=== PATIENT | female | born 1970 | race Caucasian/White ===

== ENCOUNTER 2016-11-12 09:25 | Observation (INO) | payer BC, OTHER ==
[~2016-11-12] VITALS: Ht 165.1 cm; Wt 66.2 kg
[2016-11-12] MEDS ORDERED: ASPIRIN 81 MG CHEW PO STA (09:36)
[2016-11-12] MEDS ORDERED: SODIUM CHLORIDE 0.9% 500ML 500 ML IV STA (09:36)
--- NOTE | 2016-11-12 09:42 | EMERGENCY ROOM VISIT NOTE ---
History Report prepared by Tabatha: Mey Ken Under the Supervision of: Dr. Francesco Chen D.O. First contact with patient: 09:27 Chief Complaint: CHEST PAIN Stated Complaint: CHEST PAIN History of Present Illness The patient is a 45 year old female who presents to the Emergency Room with complaints of waxing and waning left sided chest pain beginning 2 days ago. The patient states that 2 days ago she lifted her arms up and stretched and had some chest pain that she thought was related to stretching. She reports that the chest pain continued the following day while she was at work but she was able to sleep at night. She notes that when she woke up this morning she had a lot of discomfort and was concerned as her father at 54 with coronary artery disease. The patient states that she took 6 Advil over the span of a few hours without relief of her symptoms. She complains of left arm numbness and diaphoresis. She denies any shortness of breath, pain in the legs, swelling in the legs, vomiting, recent travel, and pain with breathing. The patient states that she has never had a stress test or heart catheterization and notes a history of high cholesterol. She notes that she does not get her menstrual period anymore. Source of History: patient Onset: 2 days ago Position: chest Quality: other (discomfort) Timing: waxes/wanes Modifying Factors (Relieving): other (none) Associated Symptoms: + diaphoresis, No SOB, No vomiting Note: Pt complains of left arm numbness. She denies any pain in the legs, swelling in the legs, recent travel, and pain with breathing. Review of Systems See HPI for pertinent positives & negatives. A total of 10 systems reviewed and were otherwise negative. Past Medical & Surgical Surgical Problems: (1) S/P section Family History FH: cancer FH: heart disease Hypertension Social History Smoking Status: Current Every Day Smoker Alcohol Use: occasionally Marital Status: Housing Status: lives with family Occupation Status: unemployed Current/Historical Medications No Active Prescriptions or Reported Meds Allergies Coded Allergies: Codeine (Verified Adverse Reaction, Mild, TYLENOL W/CODEINE-UPSET STOMACH , 11/12/16) "UPSET STOMACH" Azithromycin (Verified Adverse Reaction, Unknown, GI SYMPTOMS, 11/12/16) Physical Exam Vital Signs Date Time Temp Pulse Resp B/P (MAP) Pulse Ox O2 Delivery O2 Flow Rate FiO2 11/12/16 10:57 87 18 120/86 99 Room Air 11/12/16 10:16 92 20 131/91 97 Room Air 11/12/16 10:06 93 20 139/97 95 Room Air 11/12/16 09:37 123 11/12/16 09:31 100 Room Air 11/12/16 09:30 100 Room Air 11/12/16 09:30 36.5 121 20 164/95 100 Room Air Physical Exam GENERAL: Patient is awake, alert, and in no acute distress. Patient is resting comfortably and showing no signs of anxiety EYES: The conjunctivae are clear. The pupils are round and reactive. EARS, NOSE, MOUTH AND THROAT: The nose is without any evidence of any deformity. Mucous membranes are moist tongue is midline NECK: The neck is nontender and supple. RESPIRATORY: Normal respiratory effort is noted there is no evidence of wheezing rhonchi or rales CARDIOVASCULAR: Tachycardic rate and regular rhythm noted there no murmurs rubs or gallops normal S1 normal S2 GASTROINTESTINAL: The abdomen is soft. Bowel sounds are present in all quadrants. Abdomen is nontender MUSCULOSKELETAL/EXTREMITIES: There is no evidence of gross deformity full range of motion is noted in the hips and shoulders SKIN: There is no obvious evidence of any rash. There are no petechiae, pallor or cyanosis noted. NEUROLOGIC: Patient is awake alert and oriented x3 Medical Decision & Procedures ER Provider Diagnostic Interpretation: X-ray results as stated below per interpretation by me and the radiologist. CHEST ONE VIEW PORTABLE FINDINGS: The cardiac and mediastinal contours are normal. There is no evidence of focal pulmonary consolidation. There is no evidence of failure. No pleural effusions are visualized. IMPRESSION: No active disease in the chest. Electronically signed by: Kelvin Richardson M.D. 11/12/2016 10:00 AM Dictated Date/Time: 11/12/2016 10:00 AM Laboratory Results 11/12/16 09:40 Red Blood Count 4.62, Mean Corpuscular Volume 94.6, Mean Corpuscular Hemoglobin 32.9, Mean Corpuscular Hemoglobin Concent 34.8, Mean Platelet Volume 9.9, Neutrophils (%) (Auto) 66.7, Lymphocytes (%) (Auto) 20.9, Monocytes (%) (Auto) 8.4, Eosinophils (%) (Auto) 3.3, Basophils (%) (Auto) 0.7, Neutrophils # (Auto) 3.90, Lymphocytes # (Auto) 1.22, Monocytes # (Auto) 0.49, Eosinophils # (Auto) 0.19, Basophils # (Auto) 0.04 11/12/16 09:40 Test 11/12/16 09:40 11/12/16 09:46 White Blood Count 5.84 K/uL (4.8-10.8) Red Blood Count 4.62 M/uL (4.2-5.4) Hemoglobin 15.2 g/dL (12.0-16.0) Hematocrit 43.7 % (37-47) Mean Corpuscular Volume 94.6 fL (80-100) Mean Corpuscular Hemoglobin 32.9 pg (25-34) Mean Corpuscular Hemoglobin Concent 34.8 g/dl (32-36) Platelet Count 189 K/uL (130-400) Mean Platelet Volume 9.9 fL (7.4-10.4) Neutrophils (%) (Auto) 66.7 % Lymphocytes (%) (Auto) 20.9 % Monocytes (%) (Auto) 8.4 % Eosinophils (%) (Auto) 3.3 % Basophils (%) (Auto) 0.7 % Neutrophils # (Auto) 3.90 K/uL (1.4-6.5) Lymphocytes # (Auto) 1.22 K/uL (1.2-3.4) Monocytes # (Auto) 0.49 K/uL (0.11-0.59) Eosinophils # (Auto) 0.19 K/uL (0-0.5) Basophils # (Auto) 0.04 K/uL (0-0.2) RDW Standard Deviation 43.7 fL (36.4-46.3) RDW Coefficient of Variation 12.6 % (11.5-14.5) Immature Granulocyte % (Auto) 0.0 % Immature Granulocyte # (Auto) 0.00 K/uL (0.00-0.02) Prothrombin Time 10.8 SECONDS (9.0-12.0) Prothromb Time International Ratio 1.0 (0.9-1.1) Activated Partial Thromboplast Time 25.4 SECONDS (21.0-31.0) Partial Thromboplastin Ratio 1.0 Anion Gap 9.0 mmol/L (3-11) Est Creatinine Clear Calc Drug Dose 63.9 ml/min Estimated GFR () 78.8 Estimated GFR (Non- 68.0 BUN/Creatinine Ratio 12.5 (10-20) Calcium Level 9.5 mg/dl (8.5-10.1) Total Bilirubin 0.6 mg/dl (0.2-1) Direct Bilirubin 0.1 mg/dl (0-0.2) Aspartate Amino Transf (AST/SGOT) 15 U/L (15-37) Alanine Aminotransferase (ALT/SGPT) 20 U/L (12-78) Alkaline Phosphatase 48 U/L (45-117) Troponin I < 0.015 ng/ml (0-0.045) Total Protein 7.8 gm/dl (6.4-8.2) Albumin 4.3 gm/dl (3.4-5.0) Lipase 162 U/L (73-393) Human Chorionic Gonadotropin, Qual NEG (NEG) Bedside D-Dimer 179 ng/mlFEU (0-450) Laboratory results per my review. Medications Administered Medications (Trade) Dose Ordered Sig/Damien Route Start Time Stop Time Status Last Admin Dose Admin Sodium Chloride 500 ml @ 999 mls/hr Q31M STAT IV 11/12/16 09:36 11/12/16 10:06 DC 11/12/16 09:58 999 MLS/HR Aspirin (Aspirin Chew) 324 mg NOW STAT PO 11/12/16 09:36 11/12/16 09:37 DC 11/12/16 09:56 324 MG Nitroglycerin (Nitrostat Tab) 0.4 mg Q5M PRN SL 11/12/16 09:45 12/12/16 09:44 11/12/16 10:10 0.4 MG ECG Indication: chest pain Rate (beats per minute): 114 Rhythm: sinus tachycardia Findings: ST depression (diffuse), no ectopy Comparison ECG Date: no prior available ED Course 0927: The patient was evaluated in room A4B. A complete history and physical examination were performed. 0936: Aspirin Chew 324mg PO, NSS 500 ml @ 999 mls/hr IV. 0945: Nitroglycerin 0.4mg PRN SL pain. 1046: I reevaluated and updated the patient. 1118: I discussed the patient's case with Dr. Díaz of [facility] [place]. The patient will be evaluated for further management. 1123: Upon reevaluation, the patient is doing well. I discussed results and treatment plan with the patient. She verbalizes agreement and understanding. I spoke with Dr. Díaz of the [facility]. The patient will be evaluated for further management and care. Medical Decision Differential diagnosis: Etiologies such as cardiac ischemia, aortic dissection, pulmonary embolism, pneumonia, pneumothorax, musculoskeletal, infections, pericarditis, myocarditis , esophageal rupture, gastrointestinal, as well as others were entertained. Medication Reconciliation: I attest that I have personally reviewed the patient' s current medications list. Patient was found to have a slightly elevated blood pressure due to circumstances. I do not believe that the patient requires hypertension monitoring. The patient is a 45-year-old female who presented to the emergency department for an evaluation of chest pain. The patient describes left-sided chest pain which has been ongoing for the last day. She states she had similar episodes in the past. The pain is not specifically exertional. The patient was very concerned because she does have risk factors for coronary artery disease including a strong family history tobacco use and high cholesterol so she presented to the emergency department today. I discussed the patient's laboratory and radiographic studies with her. I discussed the limitations of the emergency department workup for chest pain with her. Given the patient's EKG findings I discussed her case with the on-call [facility] hospitalist. They've agreed to evaluate the patient in the emergency department for further management and disposition. I discussed this plan with the patient and she was agreeable. Consults Time Called: 1103 Consulting Physician: Dr. Díaz Returned Call: [phone] I discussed the patient's case with Dr. Díaz of [facility] [place]. The patient will be evaluated for further management. Impression Primary Impression: Left sided chest pain Additional Impression: Abnormal EKG Scribe Attestation The scribe's documentation has been prepared under my direction and personally reviewed by me in its entirety. I confirm that the note above accurately reflects all work, treatment, procedures, and medical decision making performed by me. Departure Information Dispostion Being Evaluated By Hospitalist Prescriptions No Active Prescriptions or Reported Meds Referrals No Doctor, Assigned (PCP) Patient Instructions My [facility] Problem Qualifiers
[2016-11-12] MEDS: NITROGLYCERIN 0.4 MG SL PER TAB CHARGE SL PRN ×3 (09:57→10:19)
--- NOTE | 2016-11-12 10:02 | DIAGNOSTIC IMAGING REPORT ---
CHEST ONE VIEW PORTABLE CLINICAL HISTORY: Atypical chest pain COMPARISON STUDY: 07/06/2013 FINDINGS: The cardiac and mediastinal contours are normal. There is no evidence of focal pulmonary consolidation. There is no evidence of failure. No pleural effusions are visualized.[ IMPRESSION: No active disease in the chest. Electronically signed by: Kelvin Richardson M.D. 11/12/2016 10:00 AM Dictated Date/Time: 11/12/2016 10:00 AM
[2016-11-12 10:06] LABS: BASO % 0.7 %; BASO ABS # 0.04 K/uL (0-0.2); COMPLETE YES; EOS % 3.3 %; HEMATOCRIT 43.7 % (37-47); LYMPH % 20.9 %; LYMPH ABS # 1.22 K/uL (1.2-3.4); MEAN CELL VOLUME 94.6 fL (80-100); MEAN CORPUSCULAR HEMOGLOBIN 32.9 pg (25-34); MEAN CORPUSCULAR HGB CONC 34.8 g/dl (32-36); MEAN PLATELET VOLUME 9.9 fL (7.4-10.4); MONO % 8.4 %; NEUT % 66.7 %; PLATELET COUNT 189 K/uL (130-400); RED BLOOD COUNT 4.62 M/uL (4.2-5.4); WHITE BLOOD COUNT 5.84 K/uL (4.8-10.8)
[2016-11-12 10:15] LABS: ALT/SGPT 20 U/L (12-78); BLOOD UREA NITROGEN 13 mg/dl (7-18); BUN/CREATININE RATIO 12.5 (10-20); CALCIUM 9.5 mg/dl (8.5-10.1); CARBON DIOXIDE 25 mmol/L (21-32); CHLORIDE 104 mmol/L (98-107); GLUCOSE 109 mg/dl (70-99); POTASSIUM 3.6 mmol/L (3.5-5.1); SODIUM 138 mmol/L (136-145)
[2016-11-12 10:20] LABS: ALKALINE PHOSPHATASE 48 U/L (45-117); AST/SGOT 15 U/L (15-37); PREG INTERNAL NEGATIVE QC NEG CLEAR BACKGROUND; PREG INTERNAL POSITIVE QC POS CONTROL LINE
[2016-11-12 10:21] LABS: PROTHROMBIN TIME (PATIENT) 10.8 SECONDS (9.0-12.0)
[2016-11-12 11:30] VITALS: O2SAT 99; Ht 165.1 cm; Wt 66.2 kg
[2016-11-12] MEDS ORDERED: ONDANSETRON INJ 2 MG/ML 2 ML VIAL IV PRN (11:30)
[2016-11-12] MEDS ORDERED: OPTIRAY 320 IV PRN (12:00)
[2016-11-12] MEDS ORDERED: IV FLUIDS COMPLETED PRN (12:15)
--- NOTE | 2016-11-12 12:24 | DIAGNOSTIC IMAGING REPORT ---
CT ANGIOGRAM OF THE CHEST CLINICAL HISTORY: Atypical chest and left arm pain. COMPARISON STUDY: No previous studies for comparison. TECHNIQUE: Following the IV administration of 78 mL of Optiray-320, CT angiogram of the thorax was performed from the thoracic inlet to the lung bases utilizing the pulmonary embolus protocol. Images are reviewed in the axial, sagittal, and coronal planes. IV contrast was administered without complication. MIP imaging was performed. CT DOSE: 793.30 mGy.cm FINDINGS: No pathologically enlarged axillary mediastinal or hilar lymph nodes were visualized. There was no evidence of thoracic aortic dilatation. There were no pulmonary artery filling defects to indicate acute pulmonary embolism. No pleural effusions are visualized. There are dependent atelectatic changes. There is a 5 mm solid right middle lobe pulmonary nodule as visualized in image #[id number]. There is a 4 mm solid perifissural right middle lobe nodule as visualized in image #138/[id number]. There is a 6 mm solid subpleural right apical pulmonary nodule as visualized in image #[id number]. There is a 7 mm mixed groundglass and solid pulmonary nodule within the superior segment left lower lobe as visualized in image #[id number]. IMPRESSION: 1. No CT evidence of acute pulmonary embolism 2. No evidence of focal pulmonary consolidation 3. Low suspicion subcentimeter pulmonary nodules. A 6 month follow-up study is recommended. Please refer to below summary of Fleischner criteria recommendations for follow-up of incidental CT nodules (Shruthi Aviles, Guidelines for management of small pulmonary nodules detected on CT scans: A statement from the Fleischner Society, Radiology 237: [phone].) SOLID NODULES Solitary nodule size: <6 mm * low risk patients: no follow-up needed * high risk patients: optional CT at 12 months Solitary nodule size: 6-8 mm * low risk patients: follow-up at 6-12 months, then consider further follow-up at 18-24 months * high risk patients: initial follow-up CT at 6-12 months and then at 18-24 months if no change Solitary nodule size: >8 mm * either low or high risk patients - consider follow-up CT at 3 months, and/or CT-PET, and/or biopsy Multiple nodules size: <6 mm * low risk patients: no routine follow-up * high risk patients: optional CT at 12 months Multiple nodules size: 6-8 mm * low risk patients: follow-up at 3-6 months, then consider further follow-up at 18-24 months * high risk patients: follow-up at 3-6 months, then at 18-24 months if no change Multiple nodules size: >8 mm * low risk patients: follow-up at 3-6 months, then consider further follow-up at 18-24 months * high risk patients: follow-up at 3-6 months, then at 18-24 months if no change Note: newly detected indeterminate nodule in persons 35 years of age or older. * low risk patients: minimal or absent history of smoking and/or other known risk factors * high risk patients: history of smoking or of other known risk factors (e.g. first degree relative with lung cancer, or exposure to asbestos, radon, uranium) * if a nodule up to 8 mm is partly solid or is ground glass further follow-up is required after 24 months to exclude possible slow growing adenocarcinoma (JENNIFER) SUBSOLID NODULES Solitary pure ground-glass nodule * nodule size <6 mm - no CT follow-up required * nodule size >=6 mm - follow-up CT at 6-12 months, then every 2 years until 5 years Solitary part-solid nodule * nodule size <6 mm - no CT follow-up required * nodule size >=6 mm - follow-up CT at 3-6 months. If unchanged, and solid component remains <6 mm, then annual follow-up for 5 years Multiple subsolid nodules * nodule size <6 mm - follow-up CT at 3-6 months, consider further follow-up at 2 and 4 years if stable * nodule size >=6 mm - follow-up CT at 3-6 months, subsequent management based on the most suspicious nodule(s) Electronically signed by: Kelvin Richardson M.D. 11/12/2016 12:23 PM Dictated Date/Time: 11/12/2016 12:14 PM
--- NOTE | 2016-11-12 12:28 | Medical Student: [facility] ---
Med Student History & Physical Date & Time of Service: Nov 12, 2016 at 12:19 Chief Complaint: Chest Pain Primary Care Physician: No Doctor, Assigned History of Present Illness Source: patient Mrs. Kaba is a 45 year old female with a PMH significant for hypercholesterolemia who presents today with left sided chest pain of 3 days duration. Her pain started morning after stretching and she attributed the pain to that. She describes the pain as constant and dull and achy. It intermittently radiates to her back. At its worst, the pain is a 5/10. She has no associated MARTINEZ, SOB, calf pain, or abdominal pain. She did experience dizziness, nausea and diaphoresis this morning however. The pain is worse with movement of her neck and stretching of her arms above her head. Additionally, she started having numbness/tingling of her left arm, hand and fingers this morning. She doesn't have decreased sensation however. She has never experienced this left arm numbness or left sided chest pain before. She does have a history of right trapezius muscle spasm for which she was seeing a chiropractor. The spasm has since resolved before onset of this chest pain. On arrival to the ED, the patient was afebrile, tachycardic at 121, and hypertensive at 164/95, and sating well at 100% RA. She was given 500 cc NS, 324 mg ASA, and 0.4 mg Nitrostat. Past Medical/Surgical History 1) Hypercholesterolemia Family History Father: at 54 of [place] Social History Smoking Status: Current Every Day Smoker (1/2 ppd ) Marital Status: Occupational Status: employed (employee at [employer] ) Allergies Coded Allergies: Codeine (Verified Adverse Reaction, Mild, TYLENOL W/CODEINE-UPSET STOMACH , 11/12/16) "UPSET STOMACH" Azithromycin (Verified Adverse Reaction, Unknown, GI SYMPTOMS, 11/12/16) Medications No Active Prescriptions or Reported Meds Review of Systems Constitutional: No fever, No chills, No sweats Eyes: No worsening of vision ENT: No hearing loss Respiratory: + dyspnea at rest, No cough, No sputum, No wheezing, No shortness of breath Cardiovascular: + chest pain (left sided 3/10 ), No edema, No palpitations Abdomen: No pain, No nausea, No vomiting, No diarrhea, No constipation Musculoskeletal: No joint pain, No muscle pain Genitourinary - Female: No dysuria, No urinary frequency, No urinary urgency Neurologic: + numbness/tingling (left arm/hand/fingers ), No paralysis, No weakness Endocrine: No fatigue Integumentary: No rash, No itch Physical Exam Vital Signs (24 Hours) Date Time Temp Pulse Resp B/P (MAP) Pulse Ox O2 Delivery O2 Flow Rate FiO2 11/12/16 12:14 80 15 135/93 99 Room Air 11/12/16 11:30 99 Room Air 11/12/16 10:57 87 18 120/86 99 Room Air 11/12/16 10:16 92 20 131/91 97 Room Air 11/12/16 10:06 93 20 139/97 95 Room Air 11/12/16 09:37 123 11/12/16 09:31 100 Room Air 11/12/16 09:30 100 Room Air 11/12/16 09:30 36.5 121 20 164/95 100 Room Air General Appearance: WD/WN, no apparent distress Head: normocephalic, atraumatic Eyes: normal inspection ENT: normal ENT inspection, hearing grossly normal Neck: supple, no adenopathy, thyroid normal, no JVD Respiratory/Chest: chest non-tender, lungs clear, normal breath sounds, no respiratory distress, no accessory muscle use Cardiovascular: regular rate, rhythm, no edema, no gallop, no murmur, normal peripheral pulses Abdomen/GI: normal bowel sounds, non tender, soft, no organomegaly Back: normal inspection Extremities/Musculoskelatal: normal inspection, no calf tenderness, normal capillary refill, no pedal edema 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, no motor/sensory deficits Skin: normal color, warm/dry Diagnostics Laboratory Results Results Past 24 Hours Test 11/12/16 09:40 11/12/16 09:46 11/12/16 11:27 Range/Units White Blood Count 5.84 4.8-10.8 K/uL Red Blood Count 4.62 4.2-5.4 M/uL Hemoglobin 15.2 12.0-16.0 g/dL Hematocrit 43.7 37-47 % Mean Corpuscular Volume 94.6 80-100 fL Mean Corpuscular Hemoglobin 32.9 25-34 pg Mean Corpuscular Hemoglobin Concent 34.8 32-36 g/dl Platelet Count 189 130-400 K/uL Mean Platelet Volume 9.9 7.4-10.4 fL Neutrophils (%) (Auto) 66.7 % Lymphocytes (%) (Auto) 20.9 % Monocytes (%) (Auto) 8.4 % Eosinophils (%) (Auto) 3.3 % Basophils (%) (Auto) 0.7 % Neutrophils # (Auto) 3.90 1.4-6.5 K/uL Lymphocytes # (Auto) 1.22 1.2-3.4 K/uL Monocytes # (Auto) 0.49 0.11-0.59 K/uL Eosinophils # (Auto) 0.19 0-0.5 K/uL Basophils # (Auto) 0.04 0-0.2 K/uL RDW Standard Deviation 43.7 36.4-46.3 fL RDW Coefficient of Variation 12.6 11.5-14.5 % Immature Granulocyte % (Auto) 0.0 % Immature Granulocyte # (Auto) 0.00 0.00-0.02 K/uL Prothrombin Time 10.8 9.0-12.0 SECONDS Prothromb Time International Ratio 1.0 0.9-1.1 Activated Partial Thromboplast Time 25.4 21.0-31.0 SECONDS Partial Thromboplastin Ratio 1.0 Sodium Level 138 136-145 mmol/L Potassium Level 3.6 3.5-5.1 mmol/L Chloride Level 104 98-107 mmol/L Carbon Dioxide Level 25 21-32 mmol/L Anion Gap 9.0 3-11 mmol/L Blood Urea Nitrogen 13 7-18 mg/dl Creatinine 1.00 0.60-1.20 mg/dl Est Creatinine Clear Calc Drug Dose 63.9 ml/min Estimated GFR () 78.8 Estimated GFR (Non- 68.0 BUN/Creatinine Ratio 12.5 10-20 Random Glucose 109 70-99 mg/dl Calcium Level 9.5 8.5-10.1 mg/dl Total Bilirubin 0.6 0.2-1 mg/dl Direct Bilirubin 0.1 0-0.2 mg/dl Aspartate Amino Transf (AST/SGOT) 15 15-37 U/L Alanine Aminotransferase (ALT/SGPT) 20 12-78 U/L Alkaline Phosphatase 48 45-117 U/L Troponin I < 0.015 0-0.045 ng/ml Total Protein 7.8 6.4-8.2 gm/dl Albumin 4.3 3.4-5.0 gm/dl Lipase 162 73-393 U/L Human Chorionic Gonadotropin, Qual NEG NEG Bedside D-Dimer 179 0-450 ng/mlFEU Creatine Kinase MB Ratio 0-3.[address] 11/12/2016 CT ANGIOGRAM OF THE CHEST CLINICAL HISTORY: Atypical chest and left arm pain. COMPARISON STUDY: No previous studies for comparison. TECHNIQUE: Following the IV administration of 78 mL of Optiray-320, CT angiogram of the thorax was performed from the thoracic inlet to the lung bases utilizing the pulmonary embolus protocol. Images are reviewed in the axial, sagittal, and coronal planes. IV contrast was administered without complication. MIP imaging was performed. CT DOSE: 793.30 mGy.cm FINDINGS: No pathologically enlarged axillary mediastinal or hilar lymph nodes were visualized. There was no evidence of thoracic aortic dilatation. There were no pulmonary artery filling defects to indicate acute pulmonary embolism. No pleural effusions are visualized. There are dependent atelectatic changes. There is a 5 mm solid right middle lobe pulmonary nodule as visualized in image #[id number]. There is a 4 mm solid perifissural right middle lobe nodule as visualized in image #138/[id number]. There is a 6 mm solid subpleural right apical pulmonary nodule as visualized in image #236/266. There is a 7 mm mixed groundglass and solid pulmonary nodule within the superior segment left lower lobe as visualized in image #[id number]. IMPRESSION: 1. No CT evidence of acute pulmonary embolism 2. No evidence of focal pulmonary consolidation 3. Low suspicion subcentimeter pulmonary nodules. A 6 month follow-up study is recommended. CXR 11/12/2016 CHEST ONE VIEW PORTABLE CLINICAL HISTORY: Atypical chest pain COMPARISON STUDY: 07/06/2013 FINDINGS: The cardiac and mediastinal contours are normal. There is no evidence of focal pulmonary consolidation. There is no evidence of failure. No pleural effusions are visualized.[ IMPRESSION: No active disease in the chest Cervical CT 11/12/2016 CT OF THE CERVICAL SPINE CLINICAL HISTORY: Neck pain and left arm radiculopathy COMPARISON STUDY: No previous studies for comparison. CT DOSE: TECHNIQUE: CT scan of the cervical spine was performed from the skull base to the thoracic inlet. Images are reviewed in the axial, sagittal, and coronal planes. IV contrast was not administered for this examination. FINDINGS: There is no pneumothorax. There is a 6 mm subpleural right apical pulmonary nodule. The prevertebral soft tissues are normal. No acute fractures are visualized. Minimal anterior subluxation of C3 on C4 is felt to be degenerative. There is a slight reversal the normal cervical lordosis. There is moderately advanced facet joint arthropathy at the C3-4 level on the right. IMPRESSION: 1. Slight reversal the normal cervical lordosis 2. No acute fractures or traumatic subluxations 3. Moderately advanced facet joint arthropathy at C3-4 level of the right 4. 6 mm subpleural right apical pulmonary nodule EKG RBBB Possible diffuse ST segment depressions Impression Assessment and Plan Assessment: Mrs. Kaba is a 45 year old female with a PMH significant for hypercholesterolemia who presents today with left sided chest pain of 3 days duration and left arm numbness/tingling of one day duration. Differential for the patient's chest pain includes PE, ACS, NSTEMI, costochondritis, and GERD. Differential for patient's left arm numbness/tingling includes ACS, NSTEMI, or cervical radiculopathy. The patient does have various risk factors for CAD. She is a smoker and smokes 1/2 ppd. She has a family history of CAD. Her father at 54 of an [place]. Additionally, she has hypercholesterolemia. CXR was negative for consolidation, pneumothorax or effusion. ECG showed RBBB and possible diffuse ST segment depressions. Troponin-I was negative and d-dimer was negative. Plan: Chest pain - Etiology is still unclear. PE must be considered even though d- dimer was negative. ACS and NSTEMI must be considered as well. -repeat EKG -serial troponins & CK-MB -chest CT to r/o PE -nitroglycerin 0.4 mg q5hr -continue telemetry -echo Left arm/hand/fingers numbness & tingling - etiology likely cardiac (ACS or NSTEMI) or cervical radiculopathy -cervical X-ray to r/o cervical radiculopathy -investigate cardiac pathology as indicated above Nausea -Zofran 4 mg q6hr Level of Care Telemetry Advanced Directives Existing Living Will: No Existing Power of Unemployment Claims Adjudicator: No
--- NOTE | 2016-11-12 12:31 | DIAGNOSTIC IMAGING REPORT ---
CT OF THE CERVICAL SPINE CLINICAL HISTORY: Neck pain and left arm radiculopathy COMPARISON STUDY: No previous studies for comparison. CT DOSE: TECHNIQUE: CT scan of the cervical spine was performed from the skull base to the thoracic inlet. Images are reviewed in the axial, sagittal, and coronal planes. IV contrast was not administered for this examination. FINDINGS: There is no pneumothorax. There is a 6 mm subpleural right apical pulmonary nodule. The prevertebral soft tissues are normal. No acute fractures are visualized. Minimal anterior subluxation of C3 on C4 is felt to be degenerative. There is a slight reversal the normal cervical lordosis. There is moderately advanced facet joint arthropathy at the C3-4 level on the right. IMPRESSION: 1. Slight reversal the normal cervical lordosis 2. No acute fractures or traumatic subluxations 3. Moderately advanced facet joint arthropathy at C3-4 level of the right 4. 6 mm subpleural right apical pulmonary nodule Electronically signed by: Kelvin Richardson M.D. 11/12/2016 12:30 PM Dictated Date/Time: 11/12/2016 12:27 PM
[2016-11-12 12:47] VITALS: O2SAT 98
--- NOTE | 2016-11-12 13:11 | History and Physical ---
History & Physical Date & Time of Service: Nov 12, 2016 at 13:00 Chief Complaint: Chest Pain Primary Care Physician: No Doctor, Assigned History of Present Illness Source: patient, family The patient is a 45-year-old female who presents to the emergency department with complaints of left-sided chest pain that began about 2 days ago, and the development of left arm numbness this a.m. She took 6 Advil today without significant improvement, and with concerns of her father who at age 54 of an DC and with a history of previous silent heart attacks at autopsy, she presents for assessment. She has not had any signs of illness such as cough or wheezing or other extraneous lung sounds. She's had no recent travels or sick exposures. She has no leg pains or cramping, and the chest discomfort and left arm pain did not change with deep breath. She has not experienced this type of symptoms in the past. She has never had a stress test. Past Medical/Surgical History Surgical Problems: (1) S/P section Status: Resolved Family History FH: cancer FH: heart disease Hypertension Social History Smoking Status: Current Every Day Smoker Smokeless Tobacco Use: No Alcohol Use: none Drug Use: none Marital Status: Housing status: lives with family Occupational Status: employed Immunizations History of Influenza Vaccine: Unknown History of Tetanus Vaccine?: Unknown History of Pneumococcal: No History of Hepatitis B Vaccine: Unknown Multi-Drug Resistant Organisms History of MDRO: No Allergies Coded Allergies: Codeine (Verified Adverse Reaction, Mild, TYLENOL W/CODEINE-UPSET STOMACH , 11/12/16) "UPSET STOMACH" Azithromycin (Verified Adverse Reaction, Unknown, GI SYMPTOMS, 11/12/16) Home Medications No Active Prescriptions or Reported Meds Review of Systems The patient denies palpitations, cough, lower extremity swelling, vision change , hearing change, sore throat, fevers, chills, sweats, weight change, fatigue, nausea, vomiting, abdominal pain, pelvic pain, blood in urine or stool, dysuria , urinary frequency or urgency, lightheadedness, dizziness, headache, memory loss, rash, abnormal bruising or bleeding, imbalance, focal or generalized weakness, numbness or tingling in legs, generalized arthralgias or myalgias, back or neck pain, night sweats. The review of systems is otherwise negative other than for that already noted above, and at least 10 systems have been reviewed. Physical Exam Vital Signs Date Time Temp Pulse Resp B/P (MAP) Pulse Ox O2 Delivery O2 Flow Rate FiO2 11/12/16 12:47 73 20 137/86 98 Room Air 11/12/16 12:14 80 15 135/93 99 Room Air 11/12/16 11:30 99 Room Air 11/12/16 10:57 87 18 120/86 99 Room Air 11/12/16 10:16 92 20 131/91 97 Room Air 11/12/16 10:06 93 20 139/97 95 Room Air 11/12/16 09:37 123 11/12/16 09:31 100 Room Air 11/12/16 09:30 100 Room Air 11/12/16 09:30 36.5 121 20 164/95 100 Room Air The patient is awake, well-developed and adequately nourished, alert and oriented 3, normocephalic and atraumatic, lying in bed and in no acute distress. HEENT--PERRL, EOMI, mucous membranes and oropharynx normal. Neck--supple, no JVD or bruits, thyroid normal, trachea midline, no adenopathy. Heart--normal S1 and S2, no extra beats, no murmurs, rubs or gallops. Lungs--clear bilaterally with good air movement, no respiratory distress, no accessory muscle use. Abdomen--normal bowel sounds and soft, nontender and nondistended, no hernias or masses, no organomegaly. Extremities--no cyanosis, clubbing or edema. There are good distal pulses b/l. Dermatologic--normal skin turgor, normal color, warm and dry, no abnormal lymph nodes, no rash. Neurologic--cranial nerves II through XII grossly intact, motor and sensory examination normal. Rheumatologic--normal range of motion, nontender, muscles and joints. Psychiatric--normal affect. Diagnostics Laboratory Results Results Past 24 Hours Test 11/12/16 09:40 11/12/16 09:46 11/12/16 11:27 11/12/16 12:28 Range/Units White Blood Count 5.84 4.8-10.8 K/uL Red Blood Count 4.62 4.2-5.4 M/uL Hemoglobin 15.2 12.0-16.0 g/dL Hematocrit 43.7 37-47 % Mean Corpuscular Volume 94.6 80-100 fL Mean Corpuscular Hemoglobin 32.9 25-34 pg Mean Corpuscular Hemoglobin Concent 34.8 32-36 g/dl Platelet Count 189 130-400 K/uL Mean Platelet Volume 9.9 7.4-10.4 fL Neutrophils (%) (Auto) 66.7 % Lymphocytes (%) (Auto) 20.9 % Monocytes (%) (Auto) 8.4 % Eosinophils (%) (Auto) 3.3 % Basophils (%) (Auto) 0.7 % Neutrophils # (Auto) 3.90 1.4-6.5 K/uL Lymphocytes # (Auto) 1.22 1.2-3.4 K/uL Monocytes # (Auto) 0.49 0.11-0.59 K/uL Eosinophils # (Auto) 0.19 0-0.5 K/uL Basophils # (Auto) 0.04 0-0.2 K/uL RDW Standard Deviation 43.7 36.4-46.3 fL RDW Coefficient of Variation 12.6 11.5-14.5 % Immature Granulocyte % (Auto) 0.0 % Immature Granulocyte # (Auto) 0.00 0.00-0.02 K/uL Prothrombin Time 10.8 9.0-12.0 SECONDS Prothromb Time International Ratio 1.0 0.9-1.1 Activated Partial Thromboplast Time 25.4 21.0-31.0 SECONDS Partial Thromboplastin Ratio 1.0 Sodium Level 138 136-145 mmol/L Potassium Level 3.6 3.5-5.1 mmol/L Chloride Level 104 98-107 mmol/L Carbon Dioxide Level 25 21-32 mmol/L Anion Gap 9.0 3-11 mmol/L Blood Urea Nitrogen 13 7-18 mg/dl Creatinine 1.00 0.60-1.20 mg/dl Est Creatinine Clear Calc Drug Dose 63.9 ml/min Estimated GFR () 78.8 Estimated GFR (Non- 68.0 BUN/Creatinine Ratio 12.5 10-20 Random Glucose 109 70-99 mg/dl Calcium Level 9.5 8.5-10.1 mg/dl Total Bilirubin 0.6 0.2-1 mg/dl Direct Bilirubin 0.1 0-0.2 mg/dl Aspartate Amino Transf (AST/SGOT) 15 15-37 U/L Alanine Aminotransferase (ALT/SGPT) 20 12-78 U/L Alkaline Phosphatase 48 45-117 U/L Troponin I < 0.015 0-0.045 ng/ml Total Protein 7.8 6.4-8.2 gm/dl Albumin 4.3 3.4-5.0 gm/dl Lipase 162 73-393 U/L Human Chorionic Gonadotropin, Qual NEG NEG Bedside D-Dimer 179 0-450 ng/mlFEU Creatine Kinase MB Ratio 0-3.0 Diagnostic Radiology Patient Name: ONIEL LAWLER Unit Number: [id number] Dictated: 11/12/16 1000 Transcribed: 11/12/16 1000 ARG Printed Date/Time: [~ rep prt dt]/[~ rep prt tm] [~ rep ct labl] - [~ rep ct ivnm] [facility] [place] [address] Dictated: 11/12/16 1000 Transcribed: 11/12/16 1000 ARG Printed Date/Time: [~ rep prt dt]/[~ rep prt tm] [~ rep ct labl] - [~ rep ct ivnm] CHEST ONE VIEW PORTABLE CLINICAL HISTORY: Atypical chest pain COMPARISON STUDY: 07/06/2013 FINDINGS: The cardiac and mediastinal contours are normal. There is no evidence of focal pulmonary consolidation. There is no evidence of failure. No pleural effusions are visualized.[ IMPRESSION: No active disease in the chest. Electronically signed by: Kelvin Richardson M.D. 11/12/2016 10:00 AM Dictated Date/Time: 11/12/2016 10:00 AM The status of this report is Signed. Draft = Not yet reviewed or approved by Radiologist. Signed = Reviewed and approved by Radiologist. <AttendingPhy></AttendingPhy> <FamilyPhy>No Doctor, Assigned</FamilyPhy> < PrimaryPhy>No Doctor, Assigned</PrimaryPhy> <UnitNumber>[id number]</UnitNumber> <VisitNumber>[id number]</VisitNumber> <PatientName>ONIEL LAWLER</PatientName > <DateOfBirth>1970</DateOfBirth> <Location>[facility]</Location> <ServiceDate> 11/12/16</ServiceDate> <MNE>ESINDI</MNE> <OrderingPhy>Francesco Chen D.O.</ OrderingPhy> <OrderingPhyMNE>f rep ord dr rivers</OrderingPhyMNE> <DictatingPhyMNE> f rep dict dr rivers</DictatingPhyMNE> <CCListMNE>f rep ct mne</CCListMNE> < AdmittingPhyMNE>f pt admit dr rivers</AdmittingPhyMNE> <AttendingPhyMNE>f pt attend dr rivers</AttendingPhyMNE> <ConsultingPhyMNE>f pt consult dr rivers</ConsultingPhyMNE> <FamilyPhyMNE>f pt fam dr rivers</FamilyPhyMNE> <OtherPhyMNE>f pt other dr rivers</OtherPhyMNE> < PrimaryPhyMNE>f pt prim care dr rivers</PrimaryPhyMNE> <ReferringPhyMNE>f pt referring dr rivers</ReferringPhyMNE> Patient Name: ONIEL LAWLER Unit Number: [id number] Dictated: 11/12/161213 Transcribed: 11/12/161213 ARG Printed Date/Time: [~ rep prt dt]/[~ rep prt tm] [~ rep ct labl] - [~ rep ct ivnm] [facility] [place] [address] Dictated: 11/12/161213 Transcribed: 11/12/161213 ARG Printed Date/Time: [~ rep prt dt]/[~ rep prt tm] [~ rep ct labl] - [~ rep ct ivnm] CT ANGIOGRAM OF THE CHEST CLINICAL HISTORY: Atypical chest and left arm pain. COMPARISON STUDY: No previous studies for comparison. TECHNIQUE: Following the IV administration of 78 mL of Optiray-320, CT angiogram of the thorax was performed from the thoracic inlet to the lung bases utilizing the pulmonary embolus protocol. Images are reviewed in the axial, sagittal, and coronal planes. IV contrast was administered without complication. MIP imaging was performed. CT DOSE: 793.30 mGy.cm FINDINGS: No pathologically enlarged axillary mediastinal or hilar lymph nodes were visualized. There was no evidence of thoracic aortic dilatation. There were no pulmonary artery filling defects to indicate acute pulmonary embolism. No pleural effusions are visualized. There are dependent atelectatic changes. There is a 5 mm solid right middle lobe pulmonary nodule as visualized in image #143/266. There is a 4 mm solid perifissural right middle lobe nodule as visualized in image #138/266. There is a 6 mm solid subpleural right apical pulmonary nodule as visualized in image #236/266. There is a 7 mm mixed groundglass and solid pulmonary nodule within the superior segment left lower lobe as visualized in image #185/266. IMPRESSION: 1. No CT evidence of acute pulmonary embolism 2. No evidence of focal pulmonary consolidation 3. Low suspicion subcentimeter pulmonary nodules. A 6 month follow-up study is recommended. Please refer to below summary of Fleischner criteria recommendations for follow-up of incidental CT nodules (Shruthi Aviles, Guidelines for management of small pulmonary nodules detected on CT scans: A statement from the Fleischner Society, Radiology 237: [phone].) SOLID NODULES Solitary nodule size: <6 mm * low risk patients: no follow-up needed * high risk patients: optional CT at 12 months Solitary nodule size: 6-8 mm * low risk patients: follow-up at 6-12 months, then consider further follow-up at 18-24 months * high risk patients: initial follow-up CT at 6-12 months and then at 18-24 months if no change Solitary nodule size: >8 mm * either low or high risk patients - consider follow-up CT at 3 months, and/or CT-PET, and/or biopsy Multiple nodules size: <6 mm * low risk patients: no routine follow-up * high risk patients: optional CT at 12 months Multiple nodules size: 6-8 mm * low risk patients: follow-up at 3-6 months, then consider further follow-up at 18-24 months * high risk patients: follow-up at 3-6 months, then at 18-24 months if no change Multiple nodules size: >8 mm * low risk patients: follow-up at 3-6 months, then consider further follow-up at 18-24 months * high risk patients: follow-up at 3-6 months, then at 18-24 months if no change Note: newly detected indeterminate nodule in persons 35 years of age or older. * low risk patients: minimal or absent history of smoking and/or other known risk factors * high risk patients: history of smoking or of other known risk factors (e.g. first degree relative with lung cancer, or exposure to asbestos, radon, uranium) * if a nodule up to 8 mm is partly solid or is ground glass further follow-up is required after 24 months to exclude possible slow growing adenocarcinoma (JENNIFER) SUBSOLID NODULES Solitary pure ground-glass nodule * nodule size <6 mm - no CT follow-up required * nodule size >=6 mm - follow-up CT at 6-12 months, then every 2 years until 5 years Solitary part-solid nodule * nodule size <6 mm - no CT follow-up required * nodule size >=6 mm - follow-up CT at 3-6 months. If unchanged, and solid component remains <6 mm, then annual follow-up for 5 years Multiple subsolid nodules * nodule size <6 mm - follow-up CT at 3-6 months, consider further follow-up at 2 and 4 years if stable * nodule size >=6 mm - follow-up CT at 3-6 months, subsequent management based on the most suspicious nodule(s) Electronically signed by: Kelvin Richardson M.D. 11/12/2016 12:23 PM Dictated Date/Time: 11/12/2016 12:14 PM The status of this report is Signed. Draft = Not yet reviewed or approved by Radiologist. Signed = Reviewed and approved by Radiologist. <AttendingPhy></AttendingPhy> <FamilyPhy>No Doctor, Assigned</FamilyPhy> < PrimaryPhy>No Doctor, Assigned</PrimaryPhy> <UnitNumber>[id number]</UnitNumber> <VisitNumber>[id number]</VisitNumber> <PatientName>ONIEL LAWLER</PatientName > <DateOfBirth>1970</DateOfBirth> <Location>[facility]</Location> <ServiceDate> 11/12/16</ServiceDate> <MNE>ESINDI</MNE> <OrderingPhy>Alistair Díaz M.D.< /OrderingPhy> <OrderingPhyMNE>f rep ord dr rivers</OrderingPhyMNE> <DictatingPhyMNE >f rep dict dr rivers</DictatingPhyMNE> <CCListMNE>f rep ct mne</CCListMNE> < AdmittingPhyMNE>f pt admit dr rivers</AdmittingPhyMNE> <AttendingPhyMNE>f pt attend dr rivers</AttendingPhyMNE> <ConsultingPhyMNE>f pt consult dr rivers</ConsultingPhyMNE> <FamilyPhyMNE>f pt fam dr rivers</FamilyPhyMNE> <OtherPhyMNE>f pt other dr rivers</OtherPhyMNE> < PrimaryPhyMNE>f pt prim care dr rivers</PrimaryPhyMNE> <ReferringPhyMNE>f pt referring dr rivers</ReferringPhyMNE> Patient Name: ONIEL LAWLER Unit Number: [id number] Dictated: 11/12/161226 Transcribed: 11/12/161226 ARG Printed Date/Time: [~ rep prt dt]/[~ rep prt tm] [~ rep ct labl] - [~ rep ct ivnm] [facility] Radiology Department [place], [place] [id number] Dictated: 11/12/161226 Transcribed: 11/12/161226 ARG Printed Date/Time: [~ rep prt dt]/[~ rep prt tm] [~ rep ct labl] - [~ rep ct ivnm] [~ rep ct add3]] CT OF THE CERVICAL SPINE CLINICAL HISTORY: Neck pain and left arm radiculopathy COMPARISON STUDY: No previous studies for comparison. CT DOSE: TECHNIQUE: CT scan of the cervical spine was performed from the skull base to the thoracic inlet. Images are reviewed in the axial, sagittal, and coronal planes. IV contrast was not administered for this examination. FINDINGS: There is no pneumothorax. There is a 6 mm subpleural right apical pulmonary nodule. The prevertebral soft tissues are normal. No acute fractures are visualized. Minimal anterior subluxation of C3 on C4 is felt to be degenerative. There is a slight reversal the normal cervical lordosis. There is moderately advanced facet joint arthropathy at the C3-4 level on the right. IMPRESSION: 1. Slight reversal the normal cervical lordosis 2. No acute fractures or traumatic subluxations 3. Moderately advanced facet joint arthropathy at C3-4 level of the right 4. 6 mm subpleural right apical pulmonary nodule Electronically signed by: Kelvin Richardson M.D. 11/12/2016 12:30 PM Dictated Date/Time: 11/12/2016 12:27 PM The status of this report is Signed. Draft = Not yet reviewed or approved by Radiologist. Signed = Reviewed and approved by Radiologist. <AttendingPhy></AttendingPhy> <FamilyPhy>No Doctor, Assigned</FamilyPhy> < PrimaryPhy>No Doctor, Assigned</PrimaryPhy> <UnitNumber>[id number]</UnitNumber> <VisitNumber>[id number]</VisitNumber> <PatientName>ONIEL LAWLER</PatientName > <DateOfBirth>1970</DateOfBirth> <Location>[facility]</Location> <ServiceDate> 11/12/16</ServiceDate> <MNE>ESINDI</MNE> <OrderingPhy>Alistair Díaz M.D.< /OrderingPhy> <OrderingPhyMNE>f rep ord dr rivers</OrderingPhyMNE> <DictatingPhyMNE >f rep dict dr rivers</DictatingPhyMNE> <CCListMNE>f rep ct silvestre</CCListMNE> < AdmittingPhyMNE>f pt admit dr rivers</AdmittingPhyMNE> <AttendingPhyMNE>f pt attend dr rivers</AttendingPhyMNE> <ConsultingPhyMNE>f pt consult dr rivers</ConsultingPhyMNE> <FamilyPhyMNE>f pt fam dr rivers</FamilyPhyMNE> <OtherPhyMNE>f pt other dr rivers</OtherPhyMNE> < PrimaryPhyMNE>f pt prim care dr rivers</PrimaryPhyMNE> <ReferringPhyMNE>f pt referring dr rivers</ReferringPhyMNE> EKG EKG shows sinus tachycardia at 114 bpm, right bundle branch block, nonspecific ST abnormality. Impression Assessment and Plan Left sided chest pain with left arm numbness/strong family history of coronary artery disease in her father--the patient will be admitted to telemetry unit for serial cardiac enzymes, cardiac rhythm monitoring and a 2-D echocardiogram with Dopplers. This workup is negative, she should have a stress echocardiogram prior to discharge. Pulmonary nodule--follow up with CT at recommended interval. Tobacco use--recommended cessation. Level of Care Telemetry Advanced Directives Existing Advance Directive: No Existing Living Will: No Existing Power of Quality Control Microbiologist: No Resuscitation Status FULL RESUSCITATION VTE Prophylaxis VTE Risk Assessment Done? Y/N: Yes Risk Level: Low Given or contraindicated: SCD's Social Service Consult None Apply
[2016-11-12 13:16] LABS: CKMB/CK RATIO 0.9 (0-3.0)
[2016-11-12 13:27] VITALS: BP 141/93; PULSE 75; TEMP 37.2; O2SAT 99
[2016-11-12] MEDS ORDERED: NITROGLYCERIN 2% OINTMENT 30GM TUBE ONE (15:07)
[2016-11-12] MEDS ORDERED: NITROGLYCERIN OINT 2% 1GM PACKET EXT ONE (15:15)
[2016-11-12] MEDS ORDERED: NURSING VERBAL MED ORDER ONE (15:15)
--- NOTE | 2016-11-12 15:32 | ECHOCARDIOGRAM REPORT ---
*NOTICE TO RECEIVING REPUBLICAN AGENCY This information is strictly Confidential and protected under [place] law. [place] law prohibits you from making any further disclosure of this information unless further disclosure is expressly permitted by the written consent of the person to whom it pertains or is authorized by law. A general authorization for the release of medical or other information is not sufficient for this purpose. Hospital accepts no responsibility if the information is made available to any other person, INCLUDING THE PATIENT. Interpretation Summary * Name: ONIEL LAWLER Study Date: 11/12/2016 01:48 PM BP: 137/86 mmHg * Patient Location: [facility] HR: 73 * : 1970 (M/d/yyyy) Gender: Female Height: 65 in * Age: 45 yrs Ethnicity: [place] Weight: 144 lb * Ordering Physician: Alistair Díaz * Referring Physician: Self, Referred * Performed By: Elie Hidalgo RDCS * * Reason For Study: Chest pain * BSA: 1.7 m2 * -- Conclusions -- * The left ventricle is normal in size. * There is normal left ventricular wall thickness. * The left ventricular ejection fraction is normal. * Ejection Fraction = 55-60%. * The left ventricular wall motion is normal. * The right ventricle is normal in size and function. * The right ventricular systolic function is normal as assessed by tricuspid annular plane systolic excursion (TAPSE) (normal >1.5 cm). * Normal Diastolic function with normal LA pressures Procedure Details * A complete two-dimensional transthoracic echocardiogram was performed (2D, M-mode, Doppler and color flow Doppler). * The study was technically adequate. Left Ventricle * The left ventricle is normal in size. * There is normal left ventricular wall thickness. * The left ventricular ejection fraction is normal. * Ejection Fraction = 55-60%. * The left ventricular wall motion is normal. Right Ventricle * The right ventricle is normal in size and function. * The right ventricular systolic function is normal as assessed by tricuspid annular plane systolic excursion (TAPSE) (normal >1.5 cm). Atria * The left atrial size is normal. * Right atrial size is normal. Mitral Valve * The mitral valve is grossly normal. * There is trace mitral regurgitation. Tricuspid Valve * The tricuspid valve is not well visualized, but is grossly normal. Aortic Valve * The aortic valve is trileaflet. Pulmonic Valve * The pulmonic valve is not well seen, but is grossly normal. Great Vessels * The aortic root is normal size. Pericardium/Pleural * There is no pericardial effusion. Great Vessels * Normal inferior vena cava size and collapsability with sniff indicates a normal right atrial pressure of 3 mmHg Left Ventricular Diastolic Function * Normal Diastolic function with normal LA pressures MMode 2D Measurements and Calculations IVSd 0.81 cm IVSs 1.2 cm LVIDd 4.1 cm LVIDs 3.1 cm LVPWd 0.78 cm LVPWs 1.1 cm IVS/LVPW 1.0 FS 24.5 % EDV(Teich) 75.8 ml ESV(Teich) 38.6 ml EF(Teich) 49.1 % EDV(cubed) 70.7 ml ESV(cubed) 30.4 ml EF(cubed) 57.0 % % IVS thick 51.2 % % LVPW thick 39.0 % LV mass(C)d 97.7 grams LV mass(C)dI 56.8 grams/m\S\2 LV mass(C)s 108.2 grams LV mass(C)sI 62.9 grams/m\S\2 SV(Teich) 37.2 ml SI(Teich) 21.6 ml/m\S\2 SV(cubed) 40.3 ml SI(cubed) 23.4 ml/m\S\2 EPSS 0.29 cm Ao root diam 2.4 cm Ao root area 4.5 cm\S\2 ACS 1.4 cm LA dimension 2.9 cm asc Aorta Diam 2.9 cm LA/Ao 1.2 LVOT diam 1.9 cm LVOT area 2.9 cm\S\2 LVAd ap4 18.8 cm\S\2 LVLd ap4 7.3 cm EDV(MOD-sp4) 39.1 ml LVAs ap4 11.0 cm\S\2 LVLs ap4 6.3 cm ESV(MOD-sp4) 15.8 ml EF(MOD-sp4) 59.6 % LVAd ap2 26.2 cm\S\2 LVLd ap2 8.4 cm EDV(MOD-sp2) 70.9 ml LVAs ap2 15.0 cm\S\2 LVLs ap2 6.2 cm ESV(MOD-sp2) 30.7 ml EF(MOD-sp2) 56.7 % SV(MOD-sp4) 23.3 ml SI(MOD-sp4) 13.5 ml/m\S\2 SV(MOD-sp2) 40.2 ml SI(MOD-sp2) 23.4 ml/m\S\2 Doppler Measurements and Calculations MV E max compa 83.9 cm/sec MV A max compa 65.5 cm/sec MV E/A 1.3 MV dec time 0.18 sec Ao V2 max 152.0 cm/sec Ao max PG 9.2 mmHg Ao max PG (full) 5.1 mmHg [place](V,A) 1.9 cm\S\2 [place](V,D) 1.9 cm\S\2 LV V1 max PG 4.2 mmHg LV V1 max 102.2 cm/sec PA V2 max 104.2 cm/sec PA max PG 4.3 mmHg
[2016-11-12 16:00] VITALS: BP 138/91; PULSE 68; TEMP 36.6; O2SAT 99
[2016-11-12 20:04] LABS: CKMB/CK RATIO 0.9 (0-3.0)
[2016-11-12 20:11] VITALS: BP 115/88; PULSE 81; TEMP 36.8; O2SAT 96
[2016-11-12] MEDS: OXYCODONE/ACETAMINOPHEN 5-325 TAB PO PRN (21:53)
[2016-11-13] VITALS: BP 134/88; PULSE 78; TEMP 36.8; O2SAT 96
[2016-11-13] MEDS: OXYCODONE/ACETAMINOPHEN 5-325 TAB PO PRN ×4 (03:01→20:14)
[2016-11-13 03:34] LABS: BASO % 0.5 %; BASO ABS # 0.03 K/uL (0-0.2); COMPLETE YES; EOS % 7.7 %; HEMATOCRIT 41.2 % (37-47); IG% 0.2 %; LYMPH % 30.6 %; LYMPH ABS # 2.02 K/uL (1.2-3.4); MEAN CELL VOLUME 95.4 fL (80-100); MEAN CORPUSCULAR HEMOGLOBIN 32.2 pg (25-34); MEAN CORPUSCULAR HGB CONC 33.7 g/dl (32-36); MEAN PLATELET VOLUME 9.7 fL (7.4-10.4); PLATELET COUNT 181 K/uL (130-400); RED BLOOD COUNT 4.32 M/uL (4.2-5.4)
[2016-11-13 03:38] VITALS: BP 154/96; PULSE 69; TEMP 36.6; O2SAT 97
[2016-11-13 03:49] LABS: PARTIAL THROMBOPLASTIN RATIO 1.1
[2016-11-13 03:52] LABS: BLOOD UREA NITROGEN 16 mg/dl (7-18); BUN/CREATININE RATIO 17.7 (10-20); CALCIUM 8.7 mg/dl (8.5-10.1); CARBON DIOXIDE 27 mmol/L (21-32); CHLORIDE 107 mmol/L (98-107); CREATININE 0.88 mg/dl (0.60-1.20); GLUCOSE 96 mg/dl (70-99); POTASSIUM 4.1 mmol/L (3.5-5.1); SODIUM 139 mmol/L (136-145)
[2016-11-13 03:57] LABS: CKMB/CK RATIO 1.1 (0-3.0)
[2016-11-13 07:26] VITALS: BP 151/85; PULSE 73; TEMP 36.6; O2SAT 98
[2016-11-13 11:59] VITALS: BP 158/92; PULSE 88; TEMP 36.8; O2SAT 98
--- NOTE | 2016-11-13 13:33 | Progress Note ---
Subjective Date of Service: Nov 13, 2016. Subjective Pt evaluation today including: conversation w/ patient, conversation w/ family , physical exam, chart review, lab review, review of studies, review of inpatient medication list Pain: no pain repoted PO Intake: good Voiding: no voiding problems Pt is seen and examined by me. Pt denies cp, sob, dizziness, palpitation. Pt cp subsides, and francisco j c/o of mild left shoulder pain 1-2/10 non radiating which is chronic in nature. Problem List Medical Problems: (1) Abnormal EKG Status: Acute (2) Left sided chest pain Status: Acute Review of Systems All Other Systems: Reviewed and Negative Medications Medications (Trade) Dose Ordered Sig/Damien Route Start Time Stop Time Status Last Admin Dose Admin Nitroglycerin (Nitroglycerin 2% Oint) 18 inch STK-MED ONCE .ROUTE 11/12/16 15:07 11/12/16 15:08 DC 11/12/16 15:14 18 INCH Oxycodone/ Acetaminophen (Percocet 5-325mg Tab) 1 tab Q4H PRN PO 11/12/16 20:45 11/26/16 20:44 11/13/16 08:38 1 TAB Objective Vital Signs Date Time Temp Pulse Resp B/P (MAP) Pulse Ox O2 Delivery O2 Flow Rate FiO2 11/13/16 12:00 Room Air 11/13/16 11:59 36.8 88 16 158/92 (114) 98 11/13/16 08:00 Room Air 11/13/16 07:26 36.6 73 18 151/85 (107) 98 Room Air 11/13/16 04:00 Room Air 11/13/16 03:38 36.6 69 17 154/96 (115) 97 Room Air 11/13/16 00:00 36.8 78 17 134/88 (103) 96 Room Air 11/12/16 23:59 Room Air 11/12/16 20:11 36.8 81 20 115/88 (97) 96 Room Air 11/12/16 20:00 Room Air 11/12/16 16:00 36.6 68 18 138/91 (107) 99 11/12/16 16:00 Room Air 11/12/16 13:27 37.2 75 18 141/93 (109) 99 Room Air Physical Exam General Appearance: WD/WN, no apparent distress Eyes: EOMI Neck: supple, no adenopathy Respiratory/Chest: chest non-tender, lungs clear, no respiratory distress, no accessory muscle use Cardiovascular: regular rate, rhythm, no edema, no gallop, no JVD, no murmur Abdomen: normal bowel sounds, non tender, soft Extremities: non-tender, no pedal edema, no calf tenderness Neurologic/Psychiatric: alert, normal mood/affect Skin: normal color, warm/dry, no rash Lymphatic: no adenopathy Laboratory Results Medications (Trade) Dose Ordered Sig/Damien Route Start Time Stop Time Status Last Admin Dose Admin Nitroglycerin (Nitroglycerin 2% Oint) 18 inch STK-MED ONCE .ROUTE 11/12/16 15:07 11/12/16 15:08 DC 11/12/16 15:14 18 [facility] Oxycodone/ Acetaminophen (Percocet 5-325mg Tab) 1 tab Q4H PRN PO 11/12/16 20:45 11/26/16 20:44 11/13/16 08:38 1 TAB Last 24 Hours Test 11/12/16 19:22 11/13/16 03:19 Total Creatine Kinase 97 U/L 93 U/L Creatine Kinase MB 0.9 ng/ml 1.0 ng/ml Creatine Kinase MB Ratio 0.9 1.1 Troponin I < 0.015 ng/ml < 0.015 ng/ml White Blood Count 6.60 K/uL Red Blood Count 4.32 M/uL Hemoglobin 13.9 g/dL Hematocrit 41.2 % Mean Corpuscular Volume 95.4 fL Mean Corpuscular Hemoglobin 32.2 pg Mean Corpuscular Hemoglobin Concent 33.7 g/dl Platelet Count 181 K/uL Mean Platelet Volume 9.7 fL Neutrophils (%) (Auto) 54.0 % Lymphocytes (%) (Auto) 30.6 % Monocytes (%) (Auto) 7.0 % Eosinophils (%) (Auto) 7.7 % Basophils (%) (Auto) 0.5 % Neutrophils # (Auto) 3.57 K/uL Lymphocytes # (Auto) 2.02 K/uL Monocytes # (Auto) 0.46 K/uL Eosinophils # (Auto) 0.51 K/uL Basophils # (Auto) 0.03 K/uL RDW Standard Deviation 45.1 fL RDW Coefficient of Variation 12.9 % Immature Granulocyte % (Auto) 0.2 % Immature Granulocyte # (Auto) 0.01 K/uL Prothrombin Time 11.0 SECONDS Prothromb Time International Ratio 1.0 Activated Partial Thromboplast Time 28.3 SECONDS Partial Thromboplastin Ratio 1.1 Sodium Level 139 mmol/L Potassium Level 4.1 mmol/L Chloride Level 107 mmol/L Carbon Dioxide Level 27 mmol/L Anion Gap 5.0 mmol/L Blood Urea Nitrogen 16 mg/dl Creatinine 0.88 mg/dl Est Creatinine Clear Calc Drug Dose 72.6 ml/min Estimated GFR () 92.0 Estimated GFR (Non- 79.3 BUN/Creatinine Ratio 17.7 Random Glucose 96 mg/dl Calcium Level 8.7 mg/dl Magnesium Level 2.0 mg/dl Assessment and Plan Left sided chest pain with left arm numbness/strong family history of coronary artery disease in her father--the patient is admitted to telemetry most likely musculoskeletal vs atypical chest pain. -- Serial CM are negative so far, EKG unremarkable, so far Echo and CTA chest unremarkable. -- 2D- Echo: * The left ventricle is normal in size. * There is normal left ventricular wall thickness. * The left ventricular ejection fraction is normal. * Ejection Fraction = 55-60%. * The left ventricular wall motion is normal. * The right ventricle is normal in size and function. * The right ventricular systolic function is normal as assessed by tricuspid annular plane systolic excursion (TAPSE) (normal >1.5 cm). * Normal Diastolic function with normal LA pressures Possible Dc in am to follow with sports or ortho as per PCP. Pulmonary nodule--follow up with CT at recommended interval, -- as per PCP Tobacco use--recommended cessation Continued [facility] stay due to: other Discharge planning: home
[2016-11-13 15:53] VITALS: BP 149/101; PULSE 77; TEMP 36.7; O2SAT 97
[2016-11-13 19:50] VITALS: BP 167/107; PULSE 74; TEMP 36.5; O2SAT 98
[2016-11-14 00:11] VITALS: BP 164/101; PULSE 79; TEMP 36.8; O2SAT 99
[2016-11-14] MEDS ORDERED: IBUPROFEN 600 MG TAB PO STA ×2 (04:15→11:54)
[2016-11-14 04:32] VITALS: BP 168/102; PULSE 74; TEMP 36.8; O2SAT 99
[2016-11-14 05:53] LABS: BASO % 0.5 %; BASO ABS # 0.03 K/uL (0-0.2); COMPLETE YES; EOS % 9.8 %; HEMATOCRIT 41.4 % (37-47); IG% 0.2 %; LYMPH % 30.3 %; LYMPH ABS # 1.82 K/uL (1.2-3.4); MEAN CELL VOLUME 93.9 fL (80-100); MEAN CORPUSCULAR HEMOGLOBIN 32.4 pg (25-34); MEAN CORPUSCULAR HGB CONC 34.5 g/dl (32-36); MEAN PLATELET VOLUME 9.4 fL (7.4-10.4); MONO % 7.5 %; NEUT % 51.7 %; PLATELET COUNT 175 K/uL (130-400); RED BLOOD COUNT 4.41 M/uL (4.2-5.4)
[2016-11-14 06:05] LABS: PARTIAL THROMBOPLASTIN RATIO 1.1; PROTHROMBIN TIME (PATIENT) 11.1 SECONDS (9.0-12.0)
[2016-11-14 06:30] LABS: BUN/CREATININE RATIO 11.7 (10-20); CREATININE 0.77 mg/dl (0.60-1.20); MAGNESIUM 1.9 mg/dl (1.8-2.4); POTASSIUM 3.5 mmol/L (3.5-5.1)
[2016-11-14 07:39] VITALS: BP 136/88; PULSE 89; TEMP 36.8; O2SAT 97
[2016-11-14 11:37] VITALS: BP 118/92; PULSE 73; TEMP 36.8; O2SAT 99
--- NOTE | 2016-11-14 11:41 | EXERCISE STRESS ECHO ---
*NOTICE TO RECEIVING DEMOCRAT AGENCY This information is strictly Confidential and protected under [place] law. [place] law prohibits you from making any further disclosure of this information unless further disclosure is expressly permitted by the written consent of the person to whom it pertains or is authorized by law. A general authorization for the release of medical or other information is not sufficient for this purpose. Hospital accepts no responsibility if the information is made available to any other person, INCLUDING THE PATIENT. Interpretation Summary * Name: ONIEL LAWLER Study Date: 11/14/2016 09:56 AM BP: 139/81 mmHg * Patient Location: .2E\S\E208\S\1 HR: 71 * : 1970 (M/d/yyyy) Gender: Female Height: 65 in * Age: 45 yrs Ethnicity: CA Weight: 145 lb * Ordering Physician: Hemanth King * Referring Physician: Self, Referred * Performed By: Celina Matute RCS * * Reason For Study: CHEST PAIN * BSA: 1.7 m2 * -- Conclusions -- * Stress Echo: * 1. Negative stress echo for ischemia at 89 % MPHR. * 2. Negative exercise ECG for ischemia at 89 % MPHR. * 3. Appropriate blood pressure response to exercise. * 4. No arrhythmia. * 5. Study terminated due to fatigue. Chest pain was present prior to the procedure and remained constant throughout without significant worsening. * 6. Good exercise tolerance. Procedure Details * ECHOEX, CPT #[id number] Left Ventricle * The left ventricle is normal in size. * There is normal left ventricular wall thickness. * Left ventricular systolic function is normal. * The left ventricular ejection fraction increases normally with stress. The left ventricular end-systolic cavity size reduces post-stress (normal response). The left ventricular wall motion with stress is normal. * Resting wall motion: Normal. Stress wall motion: Appropriate increase in Left ventricular systolic function and decrease in cavity size. No stress induced segmental wall motion abnormalities. Stress Parameters * NSR at 77 bpm. * Stress ECG: No ST changes. No arrhythmias. * The stress portion of this study was personally supervised by the undersigned interpreting physician. * Rest heart rate was '71' BPM. * Rest blood pressure was '139/81' * Maximum heart rate achieved was 157 bpm. * Maximum heart rate was 89 % of maximum age-predicted heart rate. * Maximum blood pressure was '156/85' * Total exercise time was '08:59' * Maximum exercise MET level achieved was '10.10' METS * Maximum treadmill speed was '3.40' miles per hour. * Maximum treadmill elevation was '14.00'% grade. * Exercise was terminated due to 'fatigue' MMode 2D Measurements and Calculations IVSd 0.84 cm LVIDd 4.4 cm LVIDs 3.1 cm LVPWd 0.85 cm IVS/LVPW 0.99 FS 29.8 % EDV(Teich) 87.1 ml ESV(Teich) 37.3 ml EF(Teich) 57.2 % EDV(cubed) 84.4 ml ESV(cubed) 29.2 ml EF(cubed) 65.5 % LV mass(C)d 117.1 grams LV mass(C)dI 67.9 grams/m\S\2 SV(Teich) 49.8 ml SI(Teich) 28.9 ml/m\S\2 SV(cubed) 55.3 ml SI(cubed) 32.0 ml/m\S\2
[2016-11-14] MEDS ORDERED: Physical therapy TOP (11:57)
[2016-11-14] MEDS ORDERED: MTR/600 PO (11:57)
[2016-11-14] MEDS ORDERED: ATOR-24 PO (11:58)
--- NOTE | 2016-11-14 11:58 | Discharge Instructions ---
Discharge Instructions Date of Service Nov 14, 2016. Admission Reason for Admission: Chest Pain Radiating To Arm, Left Sided Chest Pain Discharge Discharge Diagnosis / Problem: non cardiac chest pain Discharge Goals Goal(s): Diagnostic testing Activity Recommendations Activity Limitations: as noted below Lifting Limitations: gradually increase as tolerated . Current Hospital Diet Patient's current hospital diet: AHA Diet (Heart Healthy) Discharge Diet Recommended Diet: AHA Diet (Heart Healthy) Pending Studies Studies pending at discharge: no Medical Emergencies . Who to Call and When: Medical Emergencies: If at any time you feel your situation is an emergency, please call 911 immediately. . Non-Emergent Contact Non-Emergency issues call your: Primary Care Provider, [employer] Call Non-Emergent contact if: your pain is unusual for you . . "Provider Documentation" section prepared by Hemanth King. . VTE Core Measure Inpt VTE Proph given/why not?: SCD's
[2016-11-14 12:23] VITALS: BP 118/92; PULSE 73; TEMP 36.8; O2SAT 99
--- NOTE | 2016-11-14 15:32 | Discharge Summary ---
Discharge Summary Date of Service Nov 14, 2016. Discharge Summary Admission Date: Nov 12, 2016 at 11:59 Discharge Date: Nov 14, 2016 Discharge Disposition: Home Principal Diagnosis: non cardiac chest pain, musculoskeletal chest pain Immunizations: Have You Had Influenza Vaccine: Unknown History of Tetanus Vaccine?: Unknown History of Pneumococcal: No History of Hepatitis B Vaccine: Unknown Medication Reconciliation New Medications: Atorvastatin (Lipitor) 40 Mg Tab 40 MG PO DAILY, #30 TAB 6 Refills Ibuprofen (Ibuprofen) 600 Mg Tab 600 MG PO TID PRN for Pain, #30 DOSE [Physical therapy] () EA TOP UD, #1 Physical therapy eval and treat chest and shoulder pain treatment sessions as needed Discharge Exam Review of Systems: Constitutional: No fever, No chills, No sweats Respiratory: No cough, No sputum, No shortness of breath, No dyspnea on exertion Cardiovascular: + chest pain, No orthopnea, No PND, No edema, No claudication Abdomen: No pain, No nausea, No vomiting, No diarrhea, No constipation Musculoskeletal: + joint pain, + muscle pain Physical Exam: General Appearance: WD/WN, + mild distress Eyes: PERRL, EOMI Neck: supple, no JVD Respiratory/Chest: chest non-tender, lungs clear, normal breath sounds Cardiovascular: regular rate, rhythm, no murmur Hospital Course Pt had shoulder pain and at times took her breath away and made her diaphoretic , she has a significant past medical history with her father, she underwent stress testing and this was considered negative for cardiac ischemia. will have home to see PT and continue sparing use of nsaids per cardiology will have lipitor and follow up with Cardiology, they will arrange follow up for medication start and surveillance Total Time Spent: Less than 30 minutes This includes examination of the patient, discharge planning, medication reconciliation, and communication with other providers. Discharge Instructions Please refer to the electronic Patient Visit Report (Discharge Instructions) for additional information.
== END 2016-11-14 14:13 | disposition home or self-care (01) ==
LOC: C.EDB 09:26 → C.2E 11:59 → ENRESERV 12:35
PROVIDERS: ADMIT Hospitalist; ATTEND Internal Medicine
DX: R07.89 Other chest pain (principal); R94.31 Abnormal electrocardiogram [ECG] [EKG]; E78.00 Pure hypercholesterolemia, unspecified; F17.200 Nicotine dependence, unspecified, uncomplicated; Z82.49 Family history of ischemic heart disease and other diseases of the circulatory system

== ENCOUNTER → 2017-01-03 | Outpatient (CLI) | payer OTHER, BC ==
[~2017-01-03] MED LIST: ATOR-24 PO; MTR/600 PO; Physical therapy TOP
[2017-01-03 12:22] LABS: BASO % 0.4 %; BASO ABS # 0.02 K/uL (0-0.2); COMPLETE YES; EOS % 8.9 %; HEMATOCRIT 43.6 % (37-47); LYMPH ABS # 1.56 K/uL (1.2-3.4); MEAN CORPUSCULAR HEMOGLOBIN 31.7 pg (25-34); MEAN PLATELET VOLUME 9.8 fL (7.4-10.4); MONO % 6.2 %; NEUT % 53.5 %; PLATELET COUNT 230 K/uL (130-400); RED BLOOD COUNT 4.54 M/uL (4.2-5.4); WHITE BLOOD COUNT 5.04 K/uL (4.8-10.8)
[2017-01-03 13:24] LABS: ALT/SGPT 21 U/L (12-78); BLOOD UREA NITROGEN 8 mg/dl (7-18); CALCIUM 9.4 mg/dl (8.5-10.1); CARBON DIOXIDE 28 mmol/L (21-32); CHLORIDE 103 mmol/L (98-107); GLUCOSE 97 mg/dl (70-99); POTASSIUM 3.9 mmol/L (3.5-5.1); SODIUM 138 mmol/L (136-145)
[2017-01-03 13:28] LABS: CHOLESTEROL/HDL RATIO 6.9
[2017-01-03 13:34] LABS: ALB/GLOB RATIO 1.2 (0.9-2); ALKALINE PHOSPHATASE 49 U/L (45-117); AST/SGOT 14 U/L (15-37)
== END | disposition home or self-care (01) ==
LOC: C.LABPVFM 07:33
PROVIDERS: ATTEND Neuromusculoskeletal Medicine & OMM
DX: Z00.00 Encounter for general adult medical examination without abnormal findings (principal); E78.4 Other hyperlipidemia

== ENCOUNTER → 2017-04-24 | Outpatient (CLI) | payer OTHER, BC ==
[~2017-04-24] MED LIST changes: +GADAVIST IV PRN
--- NOTE | 2017-04-24 09:36 | DIAGNOSTIC IMAGING REPORT ---
CERVICAL SPINE COMBO HISTORY: 46 years-old Female M54.12 Cervical radiculopathyFailed P.T. and conservative manage acute neck pain with left arm numbness COMPARISON: Cervical spine CT 11/12/2016 TECHNIQUE: Multiplanar multisequence MRI of the cervical spine was obtained both with and without the use of 6.5 mL Gadavist FINDINGS: The large [id number] fagot heater localizer images demonstrate no gross abnormality. There is unchanged 3 mm anterolisthesis C3 on C4 which appears unchanged from 11/12/2016. Degenerative changes as below. Signal within the cord is within normal limits. Imaged posterior fossa structures are unremarkable. No acute fracture or focal bone marrow edema identified. C2-C3: Minimal uncovertebral spurring and facet arthrosis without central canal or foraminal narrowing. C3-C4: Anterolisthesis as above with severe right and minimal left facet arthrosis. Small central disc osteophyte complex flattens the ventral thecal sac. No significant central canal narrowing. There is mild left and [id number] right foraminal narrowing. C4-C5: Small broad-based posterior disc bulge with central osteophyte. No significant central canal or foraminal narrowing. C5-C6: Mild intervertebral disc space narrowing with broad-based posterior disc bulge and mild facet arthrosis. There is flattening of the ventral thecal sac without central canal narrowing. The left foramen is patent. Mild right foraminal narrowing. C6-C7: Only minimal facet arthrosis. No significant central canal or foraminal narrowing. C7-T1: No significant central canal or foraminal narrowing. Imaged upper thoracic levels appear normal. IMPRESSION: 1. 3 mm anterolisthesis of C3 on C4 is unchanged from comparison study likely secondary to associated facet disease. Small central disc osteophyte complex at this level is noted in addition to severe right and minimal left facet arthrosis causing mild left and mild to moderate right foraminal narrowing. 2. No significant central canal narrowing identified. 3. No focal bone marrow edema. The above report was generated using voice recognition software. It may contain grammatical, syntax or spelling errors. Electronically signed by: Omer Barnett M.D. 04/24/2017 9:35 AM Dictated Date/Time: 04/24/2017 9:03 AM
== END | disposition home or self-care (01) ==
LOC: C.MRI 07:42
PROVIDERS: ATTEND Physician Assistant Medical
DX: M54.12 Radiculopathy, cervical region (principal)